=== PATIENT | male | born 1950 | race Caucasian/White ===

== ENCOUNTER 2023-09-12 18:07 | Emergency (ER) | payer MEDICARE, SELFPAY ==
--- NOTE | ~2023-09-12 | CT_ITS ---
EXAMINATION: CT ABDOMEN AND PELVIS WITHOUT CONTRAST CLINICAL INFORMATION: Right flank pain, concern for stone COMPARISON: None available. TECHNIQUE: Multidetector volumetric imaging was performed from the superior aspect of the liver through the pubic symphysis. Sagittal and coronal reformatted images were obtained on the technologist's workstation. This CT examination was performed using dose optimization techniques as appropriate, variously including the following: *Automated exposure control *Adjustment of mA and/or kV according to patient size (this includes techniques or standardized protocols for targeted exams where dose is matched to indication/reason for exam; i.e. extremities or head) *Use of iterative reconstruction technique DLP: 782 mGy-cm FINDINGS: Evaluation of solid organs, vascular structures, and bowel wall limited in the absence of intravenous contrast. LUNG BASES: Bibasilar pulmonary atelectasis or scarring. Visualized pacemaker leads. LIVER AND BILIARY TREE: Unremarkable. GALLBLADDER: Status post cholecystectomy. PANCREAS: Scattered punctate pancreatic parenchymal calcifications, may be sequela of prior/chronic pancreatitis. SPLEEN: Unremarkable. ADRENAL GLANDS: Unremarkable. KIDNEYS AND URETERS: Punctate nonobstructing right renal calculi measuring up to 3 mm. No ureteral or bladder calculi identified. No hydroureteronephrosis. Scattered bilateral renal simple cysts for which no follow-up imaging is recommended. GASTROINTESTINAL TRACT: Severe sigmoid predominant colonic diverticulosis without evidence of acute diverticulitis. Fecalization of distal small bowel contents suggesting slow transit. No evidence of bowel obstruction. Normal appendix. VASCULAR: Mild aortoiliac calcific atherosclerosis. Mild fusiform aneurysmal dilation of the bilateral common iliac arteries, measuring up to 2.0 cm on the left and 1. Cm on the right. LYMPH NODES: No lymphadenopathy. PERITONEUM: No ascites. BLADDER: Unremarkable. PELVIC VISCERA: Unremarkable. ABDOMINAL AND PELVIC WALL: Small bilateral fat-containing hernias.. Ventral mid abdominal wall hernia mesh in place without significant residual periumbilical hernia. 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 CT/CT abdomen pelvis wo IV con IMPRESSION: 1. No acute abnormality of the abdomen or pelvis, within the limitations of noncontrast technique. 2. Punctate nonobstructing right renal calculi measuring up to 3 mm. No ureteral or bladder calculi identified. No hydroureteronephrosis. 3. Fecalization of distal small bowel contents suggesting slow transit. No evidence of bowel obstruction. 4. Mild fusiform aneurysmal dilation of the bilateral common iliac arteries, measuring up to 2.0 cm on the left and 1.9 cm on the right.
[2023-09-12 18:26] VITALS: BP 159/94; PULSE 61; RESP 18; TEMP 36.6; O2SAT 97; BMI 31.6
[2023-09-12 18:45] LABS: MANUAL DIFF FLAG NO
[2023-09-12 18:46] LABS: Basophils Percent Auto 0.7 % (0-2); Eosinophils Absolute Auto 0.2 X10*3/uL (0.0-0.4); Eosinophils Percent Auto 4.2 % (0-4); Hematocrit 44.7 % (42.0-52.0); Hemoglobin 15.4 g/dl (14.0-18.0); Imm Gran Abs Auto 0.01 X10*3/uL (0.00-0.03); Imm Gran Pct Auto 0.2 % (0.0-0.4); Lymphocytes Absolute Auto 1.6 X10*3/uL (1.2-4.9); Lymphocytes Percent Auto 28.3 % (20-40); Mean Corpuscular HGB Conc 34.5 g/dl (31.0-36.0); Mean Corpuscular Hemoglobin 33.3 pg (27.0-33.0); Mean Corpuscular Volume 96.8 fL (80.0-98.0); Mean Platelet Volume 9.8 fL (9.4-12.4); Monocytes Absolute Auto 0.5 X10*3/uL (0.1-1.2); Monocytes Percent Auto 8.7 % (2-11); Neutrophils Absolute Auto 3.3 x10*3/uL (2.0-8.3); Neutrophils Percent Auto 57.9 % (45-73); Platelet Count 197 X10*3/uL (160-400); Red Blood Count 4.62 X10*6/uL (4.60-5.80); Red Cell Distribution Width 13.5 % (11.0-16.0); White Blood Count 5.8 X10*3/uL (4.8-10.8)
[2023-09-12 18:50] LABS: Appearance Urine Clear; Color Urine Yellow; Glucose Urine UA Negative (Negative); Leukocyte Esterase Urine Negative (Negative); Nitrite Urine Negative (Negative); PH 5.5 (5.0-9.0); UMIC TRIGGER UACC YES; Urine Blood Moderate (2+) (Negative); Urine Ketones Negative (Negative); Urine Protein Negative (Neg-Trace)
[2023-09-12 18:55] LABS: Bacteria Urine None Seen (None Seen); Hyaline Casts Urine 0-2 /LPF (0-2); Squamous Epithelial Cell Urine 0-2 /HPF (0-2); WBC Urine 0-5 /HPF (0-5)
[2023-09-12 19:03] LABS: Alanine Aminotransferase 24 U/L (0-40); Albumin Level 4.2 g/dL (3.5-5.0); Alkaline Phosphatase 50 U/L (39-117); Anion Gap 16 (12-20); Aspartate Amino Transferase 28 U/L (5-37); Bilirubin Direct 0.5 mg/dL (0.0-0.5); Bilirubin Total 1.7 mg/dL (0.0-1.0); Blood Urea Nitrogen 27 mg/dL (9-16); Calcium 9.8 mg/dL (8.4-10.2); Carbon Dioxide 23 mmol/L (22-29); Chloride 108 mmol/L (96-108); Creatinine Clr Calc Pharmacy 58.6; Estimated Glomerular Filt Rate 54; Glucose Random 101 mg/dL (60-115); Lipase 27 U/L (8-78); Sodium 143 mmol/L (135-145); Total Protein 7.4 g/dL (6.5-8.0)
--- NOTE | 2023-09-12 19:18 | ED_ITS ---
HPI - Male Genitourinary General Chief complaint: Urogenital-Male Stated complaint: ? kidney stone Time Seen by Provider: 09/12/23 19:18 Source: patient Mode of arrival: ambulatory Limitations: no limitations History of Present Illness HPI Narrative: Patient is a 73 year old assigned male at with a history of bilateral iliac aneurysms presenting to the emergency department today with right sided flank pain. Patient states that over the last 2 days he has had right sided flank pain. Patient denies any dizziness, lightheadedness, abdominal pain, nausea, vomiting, fever, chills, blurry vision, double vision, loss of vision, chest pain, difficulty breathing, shortness of breath, back pain, night sweats, pain with urination, increased urinary frequency, increased urinary urgency, blood in his urine or stool, syncope or a near syncopal episode, recent trauma or falls, bowel incontinence, bladder incontinence, bowel retention, bladder retention, or any other complaints at this time. Onset (ago): day(s) (2) Duration: constant Relieving factors: none Exacerbating factors: none Associated symptoms: Reports denies other symptoms Related Data Previous Rx's ?Medication ?Instructions ?Recorded ketorolac 10 mg tablet 10 mg PO Q8H PRN pain #7 tabs 09/12/23 Allergies Allergy/AdvReac Type Severity Reaction Status Date / Time [id number] Reductase Allergy Mild MUSCLE/JOINT Verified 09/12/23 18:28 Inhibitor PAIN [[id number] REDUCTASE INHIBITOR] IV DYE Allergy Mild RASH Uncoded 09/12/23 18:28 Review of Systems 2 Constitutional: Constitutional: Reports no additional constitutional complaints, Denies chills, Denies fever(s) and Denies night sweats Eyes: Eyes: Reports no additional eye complaints, Denies blurry vision, Denies change in vision, Denies diplopia, Denies eye discharge, Denies loss of vision and Denies eye pain ENT: Denies dizziness Cardiovascular: Cardiovascular: Reports no additional cardiovascular complaints, Denies chest pain, Denies lightheadedness, Denies Loss of Consciousness and Denies dyspnea Respiratory: Respiratory: Reports no additional respiratory complaints and Denies dyspnea Gastrointestinal: Gastrointestinal: Reports no additional gastrointestinal complaints, Denies abdominal pain, Denies melena, Denies hematochezia, Denies change in bowel habits and Denies change in stool character Genitourinary: Genitourinary: Reports no additional male genitourinary complaints, Denies hematuria, Denies oliguria, Denies difficulty urinating, Denies dysuria, Reports flank pain (right sided), Denies urinary frequency, Denies urinary hesitancy, Denies urinary incontinence and Denies urinary urgency Musculoskeletal: Musculoskeletal: Reports no additional musculoskeletal complaints, Denies numbness and Denies tingling Neurologic: Denies dizziness, Denies loss of vision, Denies numbness and Denies tingling Psychiatric: Psychiatric: Reports no additional psychiatric complaints Endocrine: Endocrine: Reports no additional endocrine complaints Hematologic/Lymphatic: Hematologic/Lymphatic: Reports no additional hematologic/lymphatic complaints Allergic/Immunologic: Allergic/Immunologic: Reports no additional allergic/immunologic complaints [facility] Past Medical History Attestation statement: The following information was validated with the patient. Source: old records reviewed and nursing notes reviewed Social History Social History Advance Directives: Yes Advance Directives Information Provided: No Advance Directives on File: No Physical Exam 2 Vital Signs: Vital Signs: Last Vital Signs Temp 98.2 F 09/12/23 21:18 Pulse 62 09/12/23 21:18 Resp 14 09/12/23 21:18 BP 150/96 H 09/12/23 21:18 Pulse Ox 99 09/12/23 21:18 O2 Del Method Room Air 09/12/23 21:18 BMI result Body Mass Index 31.6 Const: General: cooperative, no acute distress, alert and awake Nutritional Appearance: well nourished Orientation/consciousness: patient oriented x3 Limitations: no limitations HEENT: Head: Yes normal to inspection and Yes atraumatic Ears: hearing grossly normal bilaterally and external ears normal General nose exam: Normal external nose present, no nasal discharge noted and no epistaxis Face and sinus: Yes normal facial exam, No abrasion and No laceration Mouth: Normal oral and palatal mucosa present, no drooling and no muffled voice Eyes: General: appearance normal, both eyes and all related structures P eriorbital: periorbital findings normal Eyelids: Yes eyelids normal C onjunctivae: conjunctivae normal Pupils: Equal, round and reactive pupils present EOM: EOMs intact bilaterally Neck: Neck: Yes normal visual inspection, Yes full ROM and Yes no lymphadenopathy Chest: Chest palpation & inspection: normal inspection of the chest Resp: Effort & Inspection: normal respiratory effort and able to speak in complete sentences GI: Inspection: Yes normal to inspection Neuro: General: patient oriented x3 and moves all extremities Cranial nerves: Yes Equal, round and reactive pupils present Cognition (Neuro): n ormal cognition Motor exam (neuro): 5/5 motor strength present throughout Sensory Exam: Normal double simultaneous stimulation for sensation C oordination: [id number] test normal Extrem: General: Yes normal to inspection, Yes full ROM and Yes capillary refill normal Psych: Appearance: grossly normal Mental Status: mental status grossly normal Affect: normal affect Attitude: cooperative Thought process: N ormal thought process present Thought content: Normal thought content present Insight: Good insight present (Psych) Medications Administered Discontinued Medications Generic Name Dose Route Start Last Admin Trade Name Freq PRN Reason Stop Dose Admin Ketorolac Tromethamine 15 mg 09/12/23 20:56 09/12/23 21:06 Ketorolac Tromethamine 15 Mg/Ml Vial IM 09/12/23 20:57 15 mg ONCE ONE Administration Medical Decision Making Medical Decision Making [facility] Narrative: Patient is a 73 year old assigned male at with a history of bilateral iliac aneurysms presenting to the emergency department today with right flank pain. Patient's physical exam was unremarkable. Patient's blood work showed an elevated BUN of 27 and bilirubin of 1.7 but were otherwise unremarkable. Patient's urine showed moderate blood but otherwise unremarkable. Patient's abdomen/pelvis CT showed a punctate nonobstructing right renal stone of 3mm and the known aneurysmal iliac arteries. Given the patient's elevated BUN of 27, evidence of existing stone, and blood in his urine - I am suspicious the patient passed a kidney stone and that is what caused his flank pain over the last 2 days. I explained my physical exam findings as well as all test results to the patient. I answered all questions asked by the patient. Patient states that he is not from the area and back home he is already following up with someone for his iliac aneurysms. I stressed the importance of the patient taking his medication as prescribed. I stressed the importance of the patient following up with his primary care provider. I stressed the importance of the patient returning to the emergency department immediately if his symptoms were to worsen or if he were to develop any dizziness, shortness of breath, difficulty breathing, chest pain, blurry vision, loss of vision, nausea, vomiting, abdominal pain, fever, chills, back pain, or any other complaints. Patient verbalized agreement and understanding with this treatment plan and discharge. Differential Diagnosis Differential Diagnoses: The differential diagnosis associated with the presentation includes Renal stone Flank pain UTI Admission/Observation Consideration of admission/observation: Escalation of care including admission/observation considered Patient would have been admitted to the hospital had his work up had any findings where hospital admission was appropriate and his clinical presentation warranted hospital admission. Lab Data [facility] Lab Attestation statement: I reviewed the patient's lab results. My interpretation of these results are in the [facility] Rationale portion of this note. 09/12/23 18:39 09/12/23 18:39 Labs: Lab Results 09/12/23 Range/Units 18:39 WBC 5.8 (4.8-10.8) X10*3/uL RBC 4.62 (4.60-5.80) X10*6/uL Hgb 15.4 (14.0-18.0) g/dl Hct 44.7 (42.0-52.0) % MCV 96.8 (80.0-98.0) fL MCH 33.3 H (27.0-33.0) pg MCHC 34.5 (31.0-36.0) g/dl RDW 13.5 (11.0-16.0) % Plt Count 197 (160-400) X10*3/uL MPV 9.8 (9.4-12.4) fL Immature Gran % (Auto) 0.2 (0.0-0.4) % Neut % (Auto) 57.9 (45-73) % Lymph % (Auto) 28.3 (20-40) % [place] % (Auto) 8.7 (2-11) % Eos % (Auto) 4.2 H (0-4) % Baso % (Auto) 0.7 (0-2) % Lymph # (Auto) 1.6 (1.2-4.9) X10*3/uL [place] # (Auto) 0.5 (0.1-1.2) X10*3/uL Eos # (Auto) 0.2 (0.0-0.4) X10*3/uL Baso # (Auto) 0.0 (0.0-0.2) X10*3/uL Abs Immat Gran (auto) 0.01 (0.00-0.03) X10*3/uL Absolute Neuts (auto) 3.3 (2.0-8.3) x10*3/uL Absolute Nucleated RBC 0.000 (0.0-0.012) X10*3/uL Nucleated RBC % (auto) 0.0 (0.0-0.2) /100WBC Sodium 143 (135-145) mmol/L Potassium 4.0 (3.3-5.1) mmol/L Chloride 108 (96-108) mmol/L Carbon Dioxide 23 (22-29) mmol/L Anion Gap 16 (12-20) BUN 27 H (9-16) mg/dL Creatinine 1.29 (0.5-1.4) mg/dL Estim Creat Clear Calc 58.6 Estimated GFR 54 Random Glucose 101 (60-115) mg/dL Calcium 9.8 (8.4-10.2) mg/dL Total Bilirubin 1.7 H (0.0-1.0) mg/dL Direct Bilirubin 0.5 (0.0-0.5) mg/dL AST 28 (5-37) U/L ALT 24 (0-40) U/L Alkaline Phosphatase 50 (39-117) U/L Total Protein 7.4 (6.5-8.0) g/dL Albumin 4.2 (3.5-5.0) g/dL Lipase 27 (8-78) U/L Urine Color Yellow Urine Appearance Clear Urine pH 5.5 (5.0-9.0) Ur Specific [place] 1.020 (1.005-1.025) Urine Protein Negative (Neg-Trace) mg/dL Urine Glucose (UA) Negative (Negative) mg/dL Urine Ketones Negative (Negative) mg/dL Urine Blood Moderate (2+) H (Negative) Urine Nitrite Negative (Negative) Ur Leukocyte Esterase Negative (Negative) Urine RBC 6-10 H (0-2) /HPF Urine WBC 0-5 (0-5) /HPF Ur Squamous Epith Cells 0-2 (0-2) /HPF Urine Bacteria None Seen (None Seen) Hyaline Casts 0-2 (0-2) /LPF Independent Interpretation I performed an independent interpretation of an: CT Scan Interpretation: My interpretation is in agreement with the radiologist's impression of this imaging study. - EXAMINATION: CT ABDOMEN AND PELVIS WITHOUT CONTRAST CLINICAL INFORMATION: Right flank pain, concern for stone COMPARISON: None available. TECHNIQUE: Multidetector volumetric imaging was performed from the superior aspect of the liver through the pubic symphysis. Sagittal and coronal reformatted images were obtained on the technologist's workstation. This CT examination was performed using dose optimization techniques as appropriate, variously including the following: *Automated exposure control *Adjustment of mA and/or kV according to patient size (this includes techniques or standardized protocols for targeted exams where dose is matched to indication/reason for exam; i.e. extremities or head) *Use of iterative reconstruction technique DLP: 782 mGy-cm FINDINGS: Evaluation of solid organs, vascular structures, and bowel wall limited in the absence of intravenous contrast. LUNG BASES: Bibasilar pulmonary atelectasis or scarring. Visualized pacemaker leads. LIVER AND BILIARY TREE: Unremarkable. GALLBLADDER: Status post cholecystectomy. PANCREAS: Scattered punctate pancreatic parenchymal calcifications, may be sequela of prior/chronic pancreatitis. SPLEEN: Unremarkable. ADRENAL GLANDS: Unremarkable. KIDNEYS AND URETERS: Punctate nonobstructing right renal calculi measuring up to 3 mm. No ureteral or bladder calculi identified. No hydroureteronephrosis. Scattered bilateral renal simple cysts for which no follow-up imaging is recommended. GASTROINTESTINAL TRACT: Severe sigmoid predominant colonic diverticulosis without evidence of acute diverticulitis. Fecalization of distal small bowel contents suggesting slow transit. No evidence of bowel obstruction. Normal appendix. VASCULAR: Mild aortoiliac calcific atherosclerosis. Mild fusiform aneurysmal dilation of the bilateral common iliac arteries, measuring up to 2.0 cm on the left and 1. Cm on the right. LYMPH NODES: No lymphadenopathy. PERITONEUM: No ascites. BLADDER: Unremarkable. PELVIC VISCERA: Unremarkable. ABDOMINAL AND PELVIC WALL: Small bilateral fat-containing hernias.. Ventral mid abdominal wall hernia mesh in place without significant residual periumbilical hernia. 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 CT/CT abdomen pelvis wo IV con IMPRESSION: 1. No acute abnormality of the abdomen or pelvis, within the limitations of noncontrast technique. 2. Punctate nonobstructing right renal calculi measuring up to 3 mm. No ureteral or bladder calculi identified. No hydroureteronephrosis. 3. Fecalization of distal small bowel contents suggesting slow transit. No evidence of bowel obstruction. 4. Mild fusiform aneurysmal dilation of the bilateral common iliac arteries, measuring up to 2.0 cm on the left and 1.9 cm on the right. Dictated By: Nomi Titus MD Signed By: Electronically signed by Nomi Titus MD 09/12/232042 Radiology Impression Discussion of test interpretation with radiology: I have reviewed the radiologist's reading. Prescription Management I considered prescription management with: Pain Medication (patient prescribed pain medication) Discharge Plan Discharge Clinical Impression: Acute flank pain Patient Disposition: Home, Self-Care Instructions: Flank Pain (ED) Additional Instructions: Follow up with your primary care provider. Return to the emergency department immediately if your symptoms worsen or if you develop any dizziness, shortness of breath, difficulty breathing, chest pain, blurry vision, loss of vision, nausea, vomiting, abdominal pain, fever, chills, back pain, or any other complaints. Prescriptions: New ketorolac 10 mg tablet 10 mg PO Q8H PRN (Reason: pain) Qty: 7 0RF Rx Instructions: maximum total duration of 5 days from all oral, intranasal, or parenteral formulations Referrals: [facility] [place]] (Call to establish and follow up with a primary care provider. If you already have a primary care provider, please follow up with them.) [facility] [place] [facility] [place] [facility] [place]Provider Group] [facility] [place] [facility] [place] [facility] [Provider Group] Interventions: ED Discharge Assessment Last Done: 09/12/23 21:18 Discharge Date/Time: 09/12/23 21:19 Print Language: Moroccan
[2023-09-12 19:30] VITALS: BP 150/96; PULSE 62; RESP 14; TEMP 36.8; O2SAT 99
[2023-09-12] MEDS: Ketorolac Tromethamine 15 MG/ML VIAL IM (21:06)
[2023-09-12 21:18] VITALS: BP 150/96; PULSE 62; RESP 14; TEMP 36.8; O2SAT 99
== END 2023-09-12 21:19 | disposition home or self-care (01) ==
PROVIDERS: Emergency Provider Emergency Medicine Emergency Medical Services
DX: R10.9 Unspecified abdominal pain (principal)
CPT/HCPCS: 36415; 74176; 80048; 80076; 81001; 83690; 85025; 96372; 99284; J1885

== ENCOUNTER 2023-09-14 07:07 | Emergency (ER) | payer MEDICARE, SELFPAY ==
--- NOTE | ~2023-09-14 | US_ITS ---
EXAMINATION: US RETROPERITONEAL COMPLETE (RENAL) CLINICAL INFORMATION: Right flank pain and urinary urgency; question calculus. COMPARISON: None available. TECHNIQUE: Real-time imaging of the kidneys and bladder. FINDINGS: RIGHT KIDNEY: 11.3 x 6.0 x 6.1 cm (SAG x AP x TRV). The kidney is normal in size, contour, and echogenicity. Renal cortical thickness is normal. No focal parenchymal lesions. At the upper pole, a 4 mm nonobstructing calculus is seen. No hydronephrosis. At the upper pole, 3.2 cm and 1.6 cm benign, simple cysts are seen, for which no imaging follow-up is recommended. LEFT KIDNEY: Not imaged by the technologist. BLADDER: Well distended and normal. Bilateral ureteral jets are demonstrated. Prevoid bladder volume is 333 mL. Postvoid bladder volume is 43 mL. US/US retroperitoneal comp IMPRESSION: 1. At the upper pole of the right kidney, a 4 mm nonobstructing calculus is seen. There is no hydronephrosis. 2. The left kidney is not imaged by the technologist. 3. There is prostatomegaly.
[2023-09-14 07:30] VITALS: BP 164/98; PULSE 60; RESP 16; TEMP 36.4; O2SAT 98; BMI 31.6
[2023-09-14 08:07] LABS: MANUAL DIFF FLAG NO
[2023-09-14 08:10] LABS: Appearance Urine Clear; Color Urine Straw; Glucose Urine UA Negative (Negative); Leukocyte Esterase Urine Negative (Negative); Nitrite Urine Negative (Negative); PH 6.5 (5.0-9.0); Specific Gravity - Urine 1.015 (1.005-1.025); UMIC TRIGGER UACC YES; Urine Blood Small (1+) (Negative); Urine Ketones Negative (Negative); Urine Protein Negative (Neg-Trace)
[2023-09-14 08:12] LABS: Bacteria Urine None Seen (None Seen); Hyaline Casts Urine 0-2 /LPF (0-2); Squamous Epithelial Cell Urine 0-2 /HPF (0-2); WBC Urine 0-5 /HPF (0-5)
[2023-09-14 08:16] LABS: Basophils Percent Auto 0.8 % (0-2); Eosinophils Absolute Auto 0.3 X10*3/uL (0.0-0.4); Eosinophils Percent Auto 5.1 % (0-4); Hematocrit 44.9 % (42.0-52.0); Hemoglobin 15.1 g/dl (14.0-18.0); Imm Gran Abs Auto 0.01 X10*3/uL (0.00-0.03); Imm Gran Pct Auto 0.2 % (0.0-0.4); Lymphocytes Absolute Auto 1.4 X10*3/uL (1.2-4.9); Lymphocytes Percent Auto 27.7 % (20-40); Mean Corpuscular HGB Conc 33.6 g/dl (31.0-36.0); Mean Corpuscular Hemoglobin 32.8 pg (27.0-33.0); Mean Corpuscular Volume 97.4 fL (80.0-98.0); Mean Platelet Volume 9.7 fL (9.4-12.4); Monocytes Absolute Auto 0.4 X10*3/uL (0.1-1.2); Monocytes Percent Auto 8.4 % (2-11); Neutrophils Absolute Auto 2.8 x10*3/uL (2.0-8.3); Neutrophils Percent Auto 57.8 % (45-73); Platelet Count 176 X10*3/uL (160-400); Red Blood Count 4.61 X10*6/uL (4.60-5.80); Red Cell Distribution Width 13.3 % (11.0-16.0); White Blood Count 4.9 X10*3/uL (4.8-10.8)
[2023-09-14 08:23] LABS: Alanine Aminotransferase 22 U/L (0-40); Albumin Level 4.1 g/dL (3.5-5.0); Alkaline Phosphatase 47 U/L (39-117); Anion Gap 14 (12-20); Aspartate Amino Transferase 24 U/L (5-37); Bilirubin Total 1.8 mg/dL (0.0-1.0); Blood Urea Nitrogen 26 mg/dL (9-16); Calcium 9.1 mg/dL (8.4-10.2); Carbon Dioxide 26 mmol/L (22-29); Chloride 108 mmol/L (96-108); Creatinine Clr Calc Pharmacy 62.9; Estimated Glomerular Filt Rate 59; Glucose Random 101 mg/dL (60-115); Potassium 4.3 mmol/L (3.3-5.1); Sodium 144 mmol/L (135-145); Total Protein 7.2 g/dL (6.5-8.0)
--- NOTE | 2023-09-14 09:31 | ED_ITS ---
HPI - General Adult General Chief complaint: Abdominal Pain Stated complaint: flank pain Time Seen by Provider: 09/14/23 09:08 Source: patient Mode of arrival: ambulatory Limitations: no limitations History of Present Illness HPI narrative: 73 year old male hx of bilateral iliac aneurysms , recently dx w/ kidney stones presents w/ R sided flak pain X 5 days w/ urinary urgency. R flank pain worse w/ certain movements better at rest. Reports he was seen here on 09/12/23 and was told that he had a kidney stone that recently passed was given toradol by mouth which initially was helping but not anymore. Denies trauma to back, abd pain, nausea, vomiting, fevers, chills, cp, sob, dizziness, wekaness, lightheadedness. Incontinet at baseline. No changes in bowel habits or saddle paresthesias. Related Data Previous Rx's ?Medication ?Instructions ?Recorded ketorolac 10 mg tablet 10 mg PO Q8H PRN pain #7 tabs 09/12/23 morphine 15 mg immediate release 15 mg PO Q6H PRN pain 5 days #10 09/14/23 tablet tabs tamsulosin 0.4 mg capsule (Flomax) 0.4 mg PO DAILY 2 weeks #14 caps 09/14/23 Allergies Allergy/AdvReac Type Severity Reaction Status Date / Time [id number] Reductase Allergy Mild MUSCLE/JOINT Verified 09/12/23 18:28 Inhibitor PAIN [[id number] REDUCTASE INHIBITOR] Iodinated Contrast Media Allergy Rash Verified 09/14/23 07:33 [Contrast Dye] Review of Systems 2 Review of Systems: Yes all other systems are reviewed and are negative PMFSH Past Medical History Attestation statement: The following information was validated with the patient. Source: old records reviewed and nursing notes reviewed Social History Social History Smoked in Last 30 Days: No Use of substances other than those prescribed or required for medical reasons: No Advance Directives: No Advance Directives Information Provided: No Do you have a plan to hurt others: No Plan Physical Exam ED Vital Signs: Vital Signs - 24 hr 09/14/23 07:30 09/14/23 10:20 09/14/23 12:37 Temperature 97.6 F 97.7 F 97.7 F Pulse Rate 60 60 63 Respiratory Rate 16 16 18 Blood Pressure 164/98 H 145/99 H 152/100 H Pulse Oximetry 98 98 100 Oxygen Delivery Method Room Air Room Air Room Air BMI result Body Mass Index 31.6 vss Appearance: Alert.? Oriented X3.? No acute distress.? Head: Normocephalic, atraumatic, no step-offs or deformities Eyes: Pupils equal, round and reactive to light.? CVS: Normal heart rate and rhythm.? Pulses normal.? Respiratory: No respiratory distress.? Breath sounds normal.? Abdomen: Soft and nontender.? Skin: Skin warm and dry.? Normal skin color.? Normal skin turgor.? Extremities: No lower extremity edema.? No calf ttp. 5/5 strength to bilateral upper and lower extremities Back: No midline tenderness, no C-spine tenderness, full range of motion, no CVA tenderness bilaterally Neuro: Oriented X 3.? No motor deficit.? No sensory deficit. CN 2-12 intact Course Reevaluation(s) Reevaluation #1: CBC unremarkable. Chemistry no acute findings requiring intervention. Chronically elevated bili and BUN. Patient tolerating p.o. fluids. Will encourage p.o. hydration. Time: 09:15 Reevaluation #2: Refusing meds. Pain seems to be ok at rest. [place] PACS down for imaging Time: 10:30 Reevaluation #3: Refusing meds again per nurse patient anxious to get out. Ambulatory Multiple nurses spoke to patient issues with imaging PACS Time: 13:00 Additional Reevaluation(s): 1611 Imaging pending. Sign out to Chandana. Medications Administered Discontinued Medications Generic Name Dose Route Start Last Admin Trade Name Danielq PRN Reason Stop Dose Admin Sodium Chloride 1,000 mls @ 999 mls/hr 09/14/23 09:45 09/14/23 15:00 Ns IV 09/14/23 10:45 Infused .Q1H1M JEN Infusion Lidocaine 1 patch 09/14/23 09:57 09/14/23 11:56 Lidocaine 4 % Patch Adh..Patch TRANSDERMA 09/14/23 09:58 Not Given ONCE ONE Protocol Morphine Sulfate 2 mg 09/14/23 09:46 09/14/23 11:56 Morphine Sulfate 2 Mg/Ml Cartridge IVPUSH 09/14/23 09:47 Not Given ONCE ONE Protocol Medical Decision Making Medical Decision Making MDM Narrative: 1000 73 year old male presents w/ atraimatic R flank pain X 5 days. Dx with small stones on 09/12/23 On 09/12/[address] scan done w/ findings ass described CT/CT abdomen pelvis wo IV con IMPRESSION: 1. No acute abnormality of the abdomen or pelvis, within the limitations of noncontrast technique.2. Punctate nonobstructing right renal calculi measuring up to 3 mm. No ureteral or bladder calculi identified. No hydroureteronephrosis.3. Fecalization of distal small bowel contents suggesting slow transit. No evidence of bowel obstruction.4. Mild fusiform aneurysmal dilation of the bilateral common iliac arteries, measuring up to 2.0 cm on the left and 1.9 cm on the right. PE benign Hx and pe concerning for likely passed stone vs spasms from stone that already passed vs msk pain. Unlikely cauda equina, cord compression, epidural abscess, fx/dislocation/sublux of spine, meningitis, pylo Plan- labs, urine, US as patient already had a CT 2 days ago Differential Diagnosis Differential Diagnoses: The differential diagnosis associated with the presentation includes Hx and pe concerning for likely passed stone vs spasms from stone that already passed vs msk pain. Unlikely cauda equina, cord compression, epidural abscess, fx/dislocation/sublux of spine, meningitis, pylo Admission/Observation Consideration of admission/observation: Escalation of care including admission/observation considered possible Lab Data [facility] Lab Attestation statement: I reviewed the patient's lab results. 09/14/23 08:03 09/14/23 08:03 Labs: Lab Results 09/14/23 Range/Units 08:03 WBC 4.9 (4.8-10.8) X10*3/uL RBC 4.61 (4.60-5.80) X10*6/uL Hgb 15.1 (14.0-18.0) g/dl Hct 44.9 (42.0-52.0) % MCV 97.4 (80.0-98.0) fL MCH 32.8 (27.0-33.0) pg MCHC 33.6 (31.0-36.0) g/dl RDW 13.3 (11.0-16.0) % Plt Count 176 (160-400) X10*3/uL MPV 9.7 (9.4-12.4) fL Immature Gran % (Auto) 0.2 (0.0-0.4) % Neut % (Auto) 57.8 (45-73) % Lymph % (Auto) 27.7 (20-40) % [place] % (Auto) 8.4 (2-11) % Eos % (Auto) 5.1 H (0-4) % Baso % (Auto) 0.8 (0-2) % Lymph # (Auto) 1.4 (1.2-4.9) X10*3/uL [place] # (Auto) 0.4 (0.1-1.2) X10*3/uL Eos # (Auto) 0.3 (0.0-0.4) X10*3/uL Baso # (Auto) 0.0 (0.0-0.2) X10*3/uL Abs Immat Gran (auto) 0.01 (0.00-0.03) X10*3/uL Absolute Neuts (auto) 2.8 (2.0-8.3) x10*3/uL Absolute Nucleated RBC 0.000 (0.0-0.012) X10*3/uL Nucleated RBC % (auto) 0.0 (0.0-0.2) /100WBC Sodium 144 (135-145) mmol/L Potassium 4.3 (3.3-5.1) mmol/L Chloride 108 (96-108) mmol/L Carbon Dioxide 26 (22-29) mmol/L Anion Gap 14 (12-20) BUN 26 H (9-16) mg/dL Creatinine 1.20 (0.5-1.4) mg/dL Estim Creat Clear Calc 62.9 Estimated GFR 59 Random Glucose 101 (60-115) mg/dL Calcium 9.1 D (8.4-10.2) mg/dL Total Bilirubin 1.8 H (0.0-1.0) mg/dL AST 24 (5-37) U/L ALT 22 (0-40) U/L Alkaline Phosphatase 47 (39-117) U/L Total Protein 7.2 (6.5-8.0) g/dL Albumin 4.1 (3.5-5.0) g/dL Urine Color Straw Urine Appearance Clear Urine pH 6.5 (5.0-9.0) Ur Specific [place] 1.015 (1.005-1.025) Urine Protein Negative (Neg-Trace) mg/dL Urine Glucose (UA) Negative (Negative) mg/dL Urine Ketones Negative (Negative) mg/dL Urine Blood Small (1+) H (Negative) Urine Nitrite Negative (Negative) Ur Leukocyte Esterase Negative (Negative) Urine RBC 3-5 H (0-2) /HPF Urine WBC 0-5 (0-5) /HPF Ur Squamous Epith Cells 0-2 (0-2) /HPF Urine Bacteria None Seen (None Seen) Hyaline Casts 0-2 (0-2) /LPF Independent Interpretation I performed an independent interpretation of an: CT Scan ( CT/CT abdomen pelvis wo IV con IMPRESSION: 1. No acute abnormality of the abdomen or pelvis, within the limitations of noncontrast technique. 2. Punctate nonobstructing right renal calculi measuring up to 3 mm. No ureteral or bladder calculi identified. No hydroureteronephrosis. 3. Fecali) Radiology Impression Discussion of test interpretation with radiology: I have reviewed the radiologist's reading. Prescription Management I considered prescription management with: Pain Medication Chronic Conditions Patient?s care impacted by: Other (kidney stones, iliac aneurysms ) Critical Care Time Critical Care Time Critical Care Time: No Discharge Plan Discharge Clinical Impression: Acute right flank pain Patient Disposition: Home, Self-Care Instructions: Abdominal Pain (ED) Additional Instructions: Take your medications as prescribed. If you were prescribed antibiotics today, it is important that you take your medication to their entirety, do not skip any doses, do not finish them early. Follow-up with your primary care provider this week. Return to the emergency department with new or worsening symptoms. Such as fevers, chills, chest pain, shortness of breath, nausea, vomiting, dizziness, headache, vision changes, lethargy In case of emergency call 911 A narcotic has been sent to your pharmacy please take this as prescribed. Do not take more than the prescribed dose. Narcotic medications can cause addiction. Please do not mix them with alcohol. Do not take them while driving or operating machinery. Do not take them with any other narcotics. Do not share them with friends or family. They can cause constipation. Take them only for severe pain. Prescriptions: New tamsulosin [Flomax] 0.4 mg capsule 0.4 mg PO DAILY 14 Days Qty: 14 0RF morphine 15 mg tablet 15 mg PO Q6H PRN (Reason: pain) 5 Days Qty: 10 0RF Rx Instructions: Partial Fill upon patient request. No Action ketorolac 10 mg tablet 10 mg PO Q8H PRN (Reason: pain) Qty: 7 0RF Rx Instructions: maximum total duration of 5 days from all oral, intranasal, or parenteral formulations Referrals: [facility] [Provider Group] - 1 day Physician,Unknown J [Primary Care Provider] - 3 days Stand Alone Forms: Work/School Release Print Language: Sinhala
--- NOTE | 2023-09-14 10:04 | PC.NURSE ---
Bladder scan pre void - 296ml, post void no bladder visualised.
[2023-09-14] MEDS: 0.9 % Sodium Chloride 1,000 ML 999 ML IV (10:12)
[2023-09-14 10:20] VITALS: BP 145/99; PULSE 60; RESP 16; TEMP 36.5; O2SAT 98
--- NOTE | 2023-09-14 10:29 | PC.NURSE ---
pt a&ox4, hypertensive - other vss, 20G PIV placed L AC, bladder scan complete, 1L NS running. pt report 2/10 R flank pain at rest, 6/10 w increased movement. pt declined lidocaine patch and morphine at this time, but will call if pain worsens. pt pending u/s. no new orders at this time.
[2023-09-14 12:37] VITALS: BP 152/100; PULSE 63; RESP 18; TEMP 36.5; O2SAT 100
--- NOTE | 2023-09-14 12:40 | PC.NURSE ---
pt resting quietly, sitting on edge of bed, pt pending u/s results, continues to report tolerating pain.
--- NOTE | 2023-09-14 15:25 | PC.NURSE ---
this RN responded to pt call erin, pt expressed frustration that he had pressed call khan w no response. pt calling d/t flds finishing - prior to this RN going on break flds were still running at slow rate d/t pt decreasing the rate himself. on arrival to room flds finished with small amount of blood present in IV j-loop. NS discontinued and IV flushed easily with no resistance - pt denied pain. pt questioned lack of heplock, explained to pt that they are not used in the ED for short stay PIV. pt stated that he had called and spoken with techs regarding need to d/c flds w/o response. this RN apologized for the lack of response and notified media analytics manager per pt request. RN apologies for delay in radiology read and explained that the provider had been attempting to get final read. pt expressed increased pain, but after discussion w RN cont'd to decline pain medication and verbalized tolerating pain at rest. manager product management aware and at bedside.
[2023-09-14 16:19] VITALS: BP 155/104; PULSE 64; RESP 16; TEMP 37.1; O2SAT 97
[2023-09-14 16:38] VITALS: BP 155/104; PULSE 64
[2023-09-14] MEDS: Metoprolol Tartrate 25 MG TABLET PO (16:38)
--- NOTE | 2023-09-14 16:40 | PC.NURSE ---
pt remains hypertensive, other vss, per pt typically takes 25mg metoprolol BID but forgot to take meds this morning. provider notified, medicated per JUL. pt given warm blankets and ashok shaun. sitting quietly in chair. continues to report 2/10 pain at a tolerable level. pt continues to decline morphine d/t tolerating pain and desire to not feel unsteady on his feet - requesting Rx to pharmacy on discharge. denies any needs at this time.
[2023-09-14 17:20] VITALS: BP 148/93; PULSE 61; RESP 18; TEMP 36.6; O2SAT 99
== END 2023-09-14 17:26 | disposition home or self-care (01) ==
PROVIDERS: Emergency Provider Emergency Medicine
DX: R10.9 Unspecified abdominal pain (principal); R39.15 Urgency of urination; N20.0 Calculus of kidney
CPT/HCPCS: 36415; 51798; 76770; 76775; 76857; 80053; 81001; 85025; 96360; 96361; 99285